=== PATIENT | female | born 1950 | race Caucasian/White ===

== ENCOUNTER → 2017-03-06 | Outpatient (CLI) | payer BC | LOC: CIMAGING 11:43 | PROVIDERS: ATTEND Internal Medicine | DX: M51.36 Other intervertebral disc degeneration, lumbar region (principal) | CPT/HCPCS: 72100-PO ==

== ENCOUNTER → 2017-10-01 | Outpatient (CLI) | payer BC | LOC: CIMAGING 12:15 | PROVIDERS: ATTEND Internal Medicine | DX: R42 Dizziness and giddiness (principal); M47.812 Spondylosis without myelopathy or radiculopathy, cervical region | CPT/HCPCS: 72040-PO ==

== ENCOUNTER → 2017-10-12 | Outpatient (CLI) | payer OTHER, BC | LOC: CIMAGING 14:17 | PROVIDERS: ATTEND Internal Medicine | DX: R42 Dizziness and giddiness (principal) | CPT/HCPCS: 70450-PO ==

== ENCOUNTER → 2017-10-12 | Outpatient (CLI) | payer OTHER, BC | LOC: CIMAGING 14:23 | PROVIDERS: ATTEND Internal Medicine | DX: R42 Dizziness and giddiness (principal) | CPT/HCPCS: 70450-PO; 93880-PO ==